=== PATIENT | male | born 1960 | race American Indian/Alaskan Native ===

== ENCOUNTER 2022-03-27 16:36 | Emergency (ER) | payer SELFPAY ==
[2022-03-27 16:49] VITALS: BP 145/77
== END 2022-03-28 03:20 | disposition left against medical advice (07) ==
LOC: ED 16:36
DX: M54.9 Dorsalgia, unspecified (principal); M25.519 Pain in unspecified shoulder; Z53.21 Procedure and treatment not carried out due to patient leaving prior to being seen by health care provider